=== PATIENT | female | born 1985 | race Caucasian/White ===

== ENCOUNTER 2017-11-28 06:30 | Emergency (ER) | payer OTHER, MEDICAID ==
[~2017-11-28] VITALS: Ht 162.6 cm; Wt 56.7 kg
[~2017-11-28 06:30] MED LIST: PREDNISONE 5 MG5 M1 PO; VENTOLIN HFA 1818 GM INH
[2017-11-28] MEDS ORDERED: PREDNISONE50 MG PO (06:55)
[2017-11-28] MEDS ORDERED: PROAIR HFA8.5 GM INH (06:55)
[2017-11-28 07:13] VITALS: BP 126/80
== END 2017-11-28 07:15 | disposition home or self-care (01) ==
LOC: M.ERS 06:30
DX: J06.9 Acute upper respiratory infection, unspecified (principal); J45.909 Unspecified asthma, uncomplicated; F31.9 Bipolar disorder, unspecified; F17.210 Nicotine dependence, cigarettes, uncomplicated; Z91.040 Latex allergy status; Z88.6 Allergy status to analgesic agent